=== PATIENT | female | born 1970 | race Caucasian/White ===

== ENCOUNTER 2017-09-28 08:31 | Emergency (ER) | payer OTHER ==
[~2017-09-28] VITALS: Ht 165.1 cm; Wt 51.3 kg
[~2017-09-28 08:31] MED LIST: ACIDOPHILUS1 EAC4 PO; CIPRO500 M1 PO; CIPRO500 MG PO; CIPROFLOXACIN500 M1 PO; FLAGYL500 M1 PO; FLAGYL500 MG PO; FLEXERIL PO; HYDROCODONE-APA1 TA1 PO; IBUPROFEN 600600 M1 PO; IBUPROFEN 800800 MG PO; MEDROLDOSEPACK PO; MIRALAX17 GM PO; NICOTINE TRANSD14 M1 TRANSDERM; NOHOMEMEDICATIONS; NORCO 5-325 TA1 EACH PO; NORFLEX100 MG PO; ONDANSETRON HCL4 M1 IVPUSH; PAIN & FEVER500 MG PO; PHENERGAN12.5 M2 RC; REGLAN 10 MG TA10 MG PO; SENNA-DOCUSATE1 EACH PO; VICODIN 5-5001 EACH PO; ZOFRAN ODT4 MG PO; ZOFRAN4 MG PO
[2017-09-28] MEDS ORDERED: TORADOL 10 MG T10 MG PO (09:03)
[2017-09-28] MEDS ORDERED: ULTRAM 50MG TAB50 MG PO (09:03)
[2017-09-28] MEDS ORDERED: AMOXICILLIN500 M1 PO (09:05)
[2017-09-28 09:16] VITALS: BP 120/83
== END 2017-09-28 09:18 | disposition home or self-care (01) ==
LOC: M.ERS 08:31
DX: S16.1XXA Strain of muscle, fascia and tendon at neck level, initial encounter (principal); H66.91 Otitis media, unspecified, right ear; J45.909 Unspecified asthma, uncomplicated; F17.210 Nicotine dependence, cigarettes, uncomplicated; Z90.710 Acquired absence of both cervix and uterus; Z88.5 Allergy status to narcotic agent; X58.XXXA Exposure to other specified factors, initial encounter; Y93.89 Activity, other specified; Y92.89 Other specified places as the place of occurrence of the external cause; Y99.8 Other external cause status

== ENCOUNTER 2020-12-05 00:26 | Emergency (ER) | payer OTHER ==
[~2020-12-05] VITALS: Ht 165.1 cm; Wt 68.0 kg
[~2020-12-05 00:26] MED LIST changes: +AMOXICILLIN500 M1 PO; +TORADOL 10 MG T10 MG PO; +ULTRAM 50MG TAB50 MG PO
[2020-12-05 02:27] LABS: URINE BILIRUBIN NEGATIVE (Negative); URINE BLOOD NEGATIVE (Negative); URINE CLARITY SL HAZY; URINE COLOR YELLOW; URINE GLUCOSE-RANDOM NEGATIVE (Negative); URINE KETONES NEGATIVE (Negative); URINE LEUKOCYTES-REFLEX TRACE (Negative); URINE NITRITE-REFLEX NEGATIVE (Negative); URINE PROTEIN NEGATIVE (Negative); URINE SPECIFIC GRAVITY 1.025 (1.005-1.030); URINE UROBILINOGEN 0.2 E.U./dl (0.2-1.0)
[2020-12-05 02:53] LABS: BACTERIA-REFLEX 1-9 Few /HPF (None Seen); CASTS None Seen /LPF (None Seen); CRYSTALS None Seen /LPF (None Seen); MUCUS None Seen strn/LPF (None Seen); SQUAMOUS 0-3 Few /LPF (0-3); URINE RBC 0-2 Rare /HPF (0-2); URINE WBC-REFLEX 0-5 Rare /HPF (0-5)
[2020-12-05] MEDS ORDERED: PREDNISONE50 MG PO (03:51)
[2020-12-05] MEDS ORDERED: TORADOL 10 MG T10 MG PO (03:51)
[2020-12-05] MEDS ORDERED: NORFLEX100 MG PO (03:51)
[2020-12-05 03:59] VITALS: BP 134/87
== END 2020-12-05 03:59 | disposition home or self-care (01) ==
LOC: M.ERS 00:26
PROVIDERS: Personal Emergency Response Attendant
DX: M62.830 Muscle spasm of back (principal); Z90.710 Acquired absence of both cervix and uterus; J45.909 Unspecified asthma, uncomplicated; F17.210 Nicotine dependence, cigarettes, uncomplicated; Z88.5 Allergy status to narcotic agent; Z87.442 Personal history of urinary calculi